=== PATIENT | male | born 1990 | race Caucasian/White ===

== ENCOUNTER 2020-12-06 06:07 | Emergency (ER) | payer SELFPAY ==
[2020-12-06 06:14] VITALS: BP 133/79; PULSE 100; RESP 18; TEMP 36.7; O2SAT 98
--- NOTE | 2020-12-06 06:16 | XRR_ITS ---
PROCEDURE INFORMATION: Exam: XR Left Wrist Exam date and time: 12/06/2020 6:16 AM Age: 30 years old Clinical indication: Injury or trauma; Other: Cut; Laceration; Wrist; Left; Additional info: Wrist injury? TECHNIQUE: Imaging protocol: XR Left wrist. Views: 1 or 2 views. COMPARISON: No relevant prior studies available. FINDINGS: Bones/joints: No acute fracture or dislocation. Soft tissues: No radiopaque or radiolucent foreign body. XR/XR wrist LT 2V [id number] IMPRESSION: 1. No acute fracture or dislocation. 2. No radiopaque or radiolucent foreign body.
[2020-12-06] MEDS: ceFAZolin 1,000 MG in sodium chloride 0.9% (plus) 50 ML 100 MG IV (07:06)
[2020-12-06] MEDS: tetanus-dipt-pertussis 0.5 mL SDV IM (07:07)
[2020-12-06] MEDS: morphine 4 mg/mL SDV 1 mL IVP (07:08)
--- NOTE | 2020-12-06 07:11 | W.ED.GENADLT ---
HPI - General Adult General: Chief complaint: Wound/Laceration Stated complaint: Injury to Left Wrist Time Seen by Provider: 12/06/20 06:17 History of Present Illness: HPI narrative: HPI: [30]yo patient w/ hx prior L hand tendon laceration presenting to the ED w/ new laceration to L volar hand. +L first/second/third digit numbness and decreased thumb opposition. Endorses mild bleeding that stopped. No LOC, injury elsewhere, focal weakness, or significant mechanism of injury. Not UTD with tdap. Not on blood thinner Onset: 12 hrs ago Duration: x 1 episode Location: home Severity: mild Review of Systems Narrative: Constitutional: No fever, no chills. HEENT: No vision changes CV: No chest pain, no palpitations PULM: No productive cough, no dyspnea. GI: No abdominal pain, no N/V/D. : No Dysuria MSKEL: No muscle pain SKIN: +Laceration over L hand NEURO: No headache, no focal weakness. HEME: No visible bruises PSYCH: Normal mood Physical Exam Narrative: EXAM NARRATIVE: Head: Atraumatic Eyes: PERRL, conjunctiva without injection, eyes tracking ENT: Mucous membrane moist NECK: Supple without lymphadenopathy LUNGS: LCTAB CV: RRR ABDOMEN: Soft, nontender in all quadrants, no guarding or rebound tenderness EXTREMITY: Normal ROM, +L base of thumb linear deep laceration 3cm +Radial and Ulnar pulses intact. R Thumb to index finger apposition decreased due to pain intact. R thumb extension/flexion intact Finger abduction to resistance intact. Sensation distally intact to light touch. Cap refill < 2 seconds all digits. +2 pt discrimination intact all digits, +numbness along the median nerve distribution over the R hand SKIN: Linear NEURO: Awake and alert. No focal weakness PSYCH: Cooperative mood and affect Procedures Laceration Laceration 1: Site: hand Side (If applicable): left Size (cm): 3 Description: linear Depth: simple, single layer and involves muscle layer Local Anesthetic: lidocaine 1% Amount of anesthesia used (mL): 5 Pre-repair: wound explored and irrigated extensively Skin layer closed with: vicryl Size (cm): 3-0 Number of sutures: 2 Technique: simple, interrupted Course Vital Signs: Vital signs: Vital Signs Temperature 98.1 F 12/06/20 09:22 Pulse Rate 100 12/06/20 06:14 Respiratory Rate 18 12/06/20 09:22 Blood Pressure 133/79 12/06/20 06:14 Pulse Oximetry 98 12/06/20 09:22 MDM - General Adult MDM Narrative: Medical decision making narrative: [30]yo patient sent the emergency room with a laceration of her left hand the base of the left thumb. On exam, patient has numbness over the median nerve distribution. Patient has decreased thumb opposition due to pain. Thumb flexion and extension intact. Rest of neurovascular exam intact. I suspect the patient may have some injury to the recurrent branch of the median nerve. No suspicion to injuries over the underlying tendon. Case discussed with Dr. Kj Sorto from [facility] at [facility] who agrees to me that this is likely a nerve injury as opposed to underlying tendon injury. Dr. Cherry agreed that patient may need to loose stitches and patient will need to be followed up in clinic on Tuesday for deeper exploration to see if the median nerve can be repaired. In the meantime, patient will be discharged home with Bactrim and Augmentin. Intervention: Two stitch were placed with 3-0 nylon. Please see laceration repair note. Interventions: cefazolin IV, TDAP Rx bactrim and clindamycin for infection prophylaxis Disposition: Discharge. Patient counseled regarding diagnostic impression, treatment plan. Patient given ED strict return precautions to return for continuation, worsening, or development of new symptoms. Instructed to f/u w/ [facility] in [facility] regarding symptoms today. Patient verbalized understanding. Imaging Data^: Other Imaging: Radiologist's impression: [address] [id number] ReportSigned Patient: Kings Rice #: [id number]: [id number]#:[id number]/Sex: 30 / MADM Date: 12/06/20Loc: ERRoom/Bed:Attending Dr: Ordering Provider/Ordering MD: Yosvany Aguayo MD Date of Service: 12/06/20 Procedure(s): XR wrist LT 2V [id number] Accession Number(s): [id number] Report Number: [id number] PROCEDURE INFORMATION: Exam: XR Left Wrist Exam date and time: 12/06/2020 6:16 AM Age: 30 years old Clinical indication: Injury or trauma; Other: Cut; Laceration; Wrist; Left; Additional info: Wrist injury? TECHNIQUE: Imaging protocol: XR Left wrist. Views: 1 or 2 views. COMPARISON: No relevant prior studies available. FINDINGS: Bones/joints: No acute fracture or dislocation. Soft tissues: No radiopaque or radiolucent foreign body. XR/XR wrist LT 2V [id number] IMPRESSION: 1. No acute fracture or dislocation. 2. No radiopaque or radiolucent foreign body. Dictated By:Ludwin Villarreal By:Ludwin Villarreal Date/Time:12/06/20830DD/ 8 Discharge Plan Discharge Patient Disposition: Home Clinical Impression: Hand laceration, Nerve injury Condition: Stable Prescriptions: New clindamycin HCl 300 mg capsule 300 mg PO Q12H 7 Days Qty: 14 RF: 0 Bactrim 400-80 mg tablet 1 tab PO BID 7 Days Qty: 14 RF: 0 Discharge Orders: Discharge ED (Routine); Ordered 12/06/20 Ordered By: Yosvany Aguayo Discharge Diet: Advance as tolerated Discharge Activity: Resume usual activity Patient Instructions: Laceration (ED) Activity Restrictions/Additional Instructions: Please follow-up with Dr. Sorto from [facility] on Tuesday. Please call [phone] for the [facility] [address] [place] [address] Take your antibiotics as instructed. Come back to the emergency room have any fever or chills, worseing pain, swelling, other injuries, or any new or concerning complaints Coding Level of Care Code ED Flat Sorting Machine Clerk for Carlos Santiago
[2020-12-06] MEDS: lidocaine 1% INJ 20 mL INJECTION (07:49)
[2020-12-06 09:22] VITALS: RESP 18; TEMP 36.7; O2SAT 98
== END 2020-12-06 09:27 | disposition home or self-care (01) ==
PROVIDERS: Emergency Provider Emergency Medicine
DX: S61.012A Laceration without foreign body of left thumb without damage to nail, initial encounter (principal); S64.12XA Injury of median nerve at wrist and hand level of left arm, initial encounter; X58.XXXA Exposure to other specified factors, initial encounter; Z23 Encounter for immunization
CPT/HCPCS: 12002; 73100; 90715; 96365; 96372; 96375; 99284; J0690; J2270

== ENCOUNTER 2022-09-03 14:02 | Emergency (ER) | payer SELFPAY ==
[2022-09-03 14:05] VITALS: BP 150/92; PULSE 83; RESP 16; TEMP 36.9; O2SAT 100; BMI 31.3
--- NOTE | 2022-09-03 14:39 | ED_ITS ---
HPI - Abdominal Pain General: Chief Complaint: Abdominal Pain Stated Complaint: lower abd pain Time Seen by Provider: 09/03/22 14:04 Source: patient Mode of arrival: ambulatory (In the custody of law enforcement) History of Present Illness: 32-year-old male presents emergency room in custody of law form complaining of lower abdominal pain. Patient states he passed a large amount of blood in the stool with a bowel movement this afternoon. He has had problems with hemorrhoids in the past no recent surgeries. No previous hemorrhoidectomy. He is not on any anticoagulants. Denies fever sweats chills nausea vomiting or diarrhea. MD elicited complaint: abdominal pain Onset (ago): hour(s) Quality: cramping Radiation: none Exacerbating factors: nothing Relieving factors: nothing Associated Symptoms: Reports hematochezia; Denies anorexia, belching, bloating, change in bowel habits, change in stool character, chills, coffee ground emesis, constipation, GI cramping, diarrhea, dyspepsia, dysuria, excessive flatus, fever(s), heartburn, hematuria, hematemesis, fecal incontinence, loose stools, melena, nausea, poor appetite, syncope and vomiting Review of Systems Const: Denies: fever(s) or chills Card: Denies: chest pain, palpitations or syncope Resp: Denies: dyspnea, productive cough or non-productive cough GI: Reports: hematochezia; Denies: abdominal pain, nausea, vomiting, hematemesis, coffee ground emesis, heartburn, diarrhea, constipation, bloating, GI cramping, belching, excessive flatus, fecal incontinence, change in bowel habits, change in stool character or melena : Denies: dysuria or hematuria Skin/Breast: Denies: rash or pruritus Physical Exam Const: GENERAL APPEARANCE: cooperative and comfortable ORIENTATION/CONSCIOUSNESS: Yes awake, Yes oriented to person, Yes oriented to place and Yes oriented to time HENMT: COMMON NORMALS: normocephalic, atraumatic and hearing grossly normal bilaterally HEAD & SCALP: normocephalic and atraumatic Resp: COMMON NORMALS: normal respiratory effort, No retractions, No use of accessory muscles and clear to auscultation bilaterally AUSCULTATION: clear to auscultation bilaterally Cardio: COMMON NORMALS: regular rate, regular rhythm and No murmurs present (Cardio) RATE: regular rate RHYTHM: regular rhythm GI: COMMON NORMALS: Soft to palpation and No hepatosplenomegaly present AUSCULTATION: Yes normoactive bowel sounds PALPATION: Yes Soft to palpation, No Tenderness to palpation present (GI), No Guarding due to palpation present (GI) and Yes No hepatosplenomegaly present Extremity: COMMON NORMALS: normal to inspection, capillary refill normal, no clubbing, cyanosis or edema, no calf tenderness and no pedal edema Neuro: SENSORIUM/ORIENTATION: Yes oriented to person, Yes oriented to place and Yes oriented to time Skin: COMMON NORMALS: no rashes or lesions noted GENERAL SKIN EXAM: no rashes or lesions noted Course Vital Signs: Vital signs: Vital Signs Temperature 98.4 F 09/03/22 14:05 Pulse Rate 76 09/03/22 14:44 Respiratory Rate 18 09/03/22 14:44 Blood Pressure 138/88 09/03/22 14:44 Pulse Oximetry 99 09/03/22 14:44 Oxygen Delivery Me thod Room Air 09/03/22 14:05 MDM - Abdominal Pain Medical Decision Making Bright red blood per rectum no active bleeding at this time suspect hemorrhoids. Abdominal exam unremarkable hemoglobin stable at 14. Discharge home we will set up for outpatient consult with surgery for colonoscopy return if has worsening or changes symptoms Medical Records I reviewed the patient's medical records. Lab Data I reviewed the patient's lab results. 09/03/22 14:37 09/03/22 14:37 Labs/Radiology: Laboratory Results WBC 6.8 10^3/uL (4.0-10.0) 09/03/22 14:37 RBC 4.58 10^6/uL (4.1-5.3) 09/03/22 14:37 Hgb 14.0 g/dL (11.7-16.6) 09/03/22 14:37 Hct 41.8 % (42.0-52.0) L 09/03/22 14:37 MCV 91.3 fl (80-94) 09/03/22 14:37 MCH 30.6 pg (28.0-34.0) 09/03/22 14:37 MCHC 33.5 g/dL (30.0-36.0) 09/03/22 14:37 RDW 12.5 % (12.1-15.1) 09/03/22 14:37 Plt Count 332 10^3/cmm (130-400) 09/03/22 14:37 MPV 10.2 fL (7.4-10.4) 09/03/22 14:37 Neut % (Auto) 58.0 % 09/03/22 14:37 Lymph % (Auto) 34.3 % 09/03/22 14:37 [place] % (Auto) 5.3 % 09/03/22 14:37 Eos % (Auto) 1.6 % 09/03/22 14:37 Baso % (Auto) 0.7 % 09/03/22 14:37 Neut # (Auto) 3.94 10^3/uL (1.8-7.7) 09/03/22 14:37 Lymph # (Auto) 2.3 10^3/uL (0.8-4.8) 09/03/22 14:37 [place] # (Auto) 0.4 10^3/uL (0.2-0.9) 09/03/22 14:37 Eos # (Auto) 0.1 10^3/uL (0.0-0.8) 09/03/22 14:37 Baso # (Auto) 0.1 10^3/uL (0.0-0.1) 09/03/22 14:37 Nucleated RBC % (auto) 0 % 09/03/22 14:37 Nucleated RBCs # 0.0 /100WBC 09/03/22 14:37 Sodium 140 mmol/L (136-145) 09/03/22 14:37 Potassium 4.1 mmol/L (3.5-5.1) 09/03/22 14:37 Chloride 103 mmol/L (98-107) 09/03/22 14:37 Carbon Dioxide 27 mmol/L (22-29) 09/03/22 14:37 Anion Gap 14.1 (5-19) 09/03/22 14:37 BUN 18 mg/dL (6-20) 09/03/22 14:37 Creatinine 1.0 mg/dL (0.7-1.2) 09/03/22 14:37 GFR Calculation 86.6 mL/min (90-130) L 09/03/22 14:37 Glucose 109 mg/dL (65-115) 09/03/22 14:37 Calculated Osmolality 292 mOsm/kg (285-295) 09/03/22 14:37 Calcium 9.2 mg/dL (8.5-10.5) 09/03/22 14:37 Total Bilirubin 0.2 mg/dL (0.15-1.2) 09/03/22 14:37 AST 21 U/L (0-40) 09/03/22 14:37 ALT 36 U/L (0-41) 09/03/22 14:37 Alkaline Phosphatase 79 U/L (40-130) 09/03/22 14:37 Total Protein 6.9 g/dL (6.6-8.7) 09/03/22 14:37 Albumin 4.3 g/dL (3.5-5.2) 09/03/22 14:37 Globulin 2.6 g/dL (1.3-4.6) 09/03/22 14:37 Urine Color Yellow (Yellow) 09/03/22 15:05 Urine Appearance Clear (CLEAR) 09/03/22 15:05 Urine pH 6 (5-7) 09/03/22 15:05 Ur Specific [place] 1.020 (1.005-1.030) 09/03/22 15:05 Urine Protein Neg (Negative) 09/03/22 15:05 Urine Glucose (UA) Norm (Normal) 09/03/22 15:05 Urine Ketones Negative (Negative) 09/03/22 15:05 Urine Blood Neg (Negative) 09/03/22 15:05 Urine Nitrate Negative (Negative) 09/03/22 15:05 Urine Bilirubin Neg (Negative) 09/03/22 15:05 Urine Urobilinogen Norm mg/dL (Negative) 09/03/22 15:05 Ur Leukocyte Esterase Negative (Negative) 09/03/22 15:05 Discharge Plan Discharge Patient Disposition: Home Clinical Impression: Bright red rectal bleeding Condition: Stable Prescriptions: New Anusol-HC 25 mg suppository 25 mg MT TID 28 Days Qty: 100 0RF Discharge Orders: Discharge ED (Routine); Ordered 09/03/22 Ordered By: Carlos Lopes Discharge Diet: Usual diet Discharge Activity: Resume usual activity Patient Instructions: Opioid Safety, Pain Management Coding Level of Care Code ED Reset Merchandiser for Chg Pamela
[2022-09-03 14:44] VITALS: BP 138/88; PULSE 76; RESP 18; O2SAT 100; O2SAT 99
[2022-09-03] MEDS: morphine 4 mg/mL SDV 1 mL IVP (14:44)
[2022-09-03] MEDS: ondansetron 2 mg/ML SDV 2 mL 4 MG IVP (14:45)
[2022-09-03] MEDS: sodium chloride 0.9% 1,000 ML 999 ML IV (14:45)
[2022-09-03 14:48] LABS: Basophils # 0.1 10^3/uL (0.0-0.1); Basophils % 0.7 %; Eosinophils # 0.1 10^3/uL (0.0-0.8); Eosinophils % 1.6 %; Hematocrit 41.8 % (42.0-52.0); Lymphocytes # 2.3 10^3/uL (0.8-4.8); Lymphocytes % 34.3 %; Mean Corpuscular HGB Conc 33.5 g/dL (30.0-36.0); Mean Corpuscular Hemoglobin 30.6 pg (28.0-34.0); Mean Corpuscular Volume 91.3 fl (80-94); Mean Platelet Volume 10.2 fL (7.4-10.4); Monocytes # 0.4 10^3/uL (0.2-0.9); Monocytes % 5.3 %; Neutrophils # 3.94 10^3/uL (1.8-7.7); Nucleated Red Blood Cells % 0 %; Platelet Count 332 10^3/cmm (130-400); Red Blood Count 4.58 10^6/uL (4.1-5.3); Red Cell Distribution Width 12.5 % (12.1-15.1); White Blood Count 6.8 10^3/uL (4.0-10.0)
[2022-09-03 15:08] LABS: Alanine Aminotransferase 36 U/L (0-41); Albumin Level 4.3 g/dL (3.5-5.2); Alkaline Phosphatase 79 U/L (40-130); Anion Gap 14.1 (5-19); Aspartate Amino Transferase 21 U/L (0-40); Blood Urea Nitrogen 18 mg/dL (6-20); Calcium 9.2 mg/dL (8.5-10.5); Carbon Dioxide 27 mmol/L (22-29); Chloride 103 mmol/L (98-107); Globulin 2.6 g/dL (1.3-4.6); Glomerular Filtration Rate 86.6 mL/min (90-130); Glucose 109 mg/dL (65-115); Osmolality Calculated 292 mOsm/kg (285-295); Potassium 4.1 mmol/L (3.5-5.1); Sodium 140 mmol/L (136-145); Total Bilirubin 0.2 mg/dL (0.15-1.2); Total Protein 6.9 g/dL (6.6-8.7)
[2022-09-03 15:39] LABS: Add Urine Microscopic? NO; Charge for UA Resulting for Rev
[2022-09-03 15:47] LABS: Bilirubin Urine Neg (Negative); Blood Urine Neg (Negative); Glucose Urine UA Norm (Normal); Ketones Urine Negative (Negative); Leukocyte Esterase Urine Negative (Negative); Nitrate Urine Negative (Negative); Protein Urine Neg (Negative); Urine Appearance Clear (CLEAR); Urine Color Yellow (Yellow); Urobilinogen Urine Norm (Negative); pH Urine 6 (5-7)
--- NOTE | 2022-09-06 09:51 | PC.SOCIAL ---
Addendum entered by Isabel Lama 09/15/22 13:07: manager cafe received the following message from general surgery regarding follow up appointment: [facility] full > mailing letter 09/13 On 09/10/22 @ 11:26 Cindy Warren Wrote To General Surgery Front Off voicemail box full 09/10 On 09/09/22 @ 14:10 Krunal Linda Wrote To General Surgery Front Off vmb full 09/09 Original Note: General Surgery Referral to General surgery at this time. Clinic to contact patient with appt date/time.
== END 2022-09-03 16:17 | disposition home or self-care (01) ==
PROVIDERS: Emergency Provider Family Medicine
DX: K62.5 Hemorrhage of anus and rectum (principal)
CPT/HCPCS: 36415; 80053; 81003; 85025; 96374; 96375; 99284; J2270; J2405; J7030

== ENCOUNTER 2022-09-08 21:40 | Emergency (ER) | payer SELFPAY ==
[2022-09-08 21:44] VITALS: BP 140/84; PULSE 66; RESP 16; TEMP 36.9; O2SAT 98; BMI 28.1
--- NOTE | 2022-09-08 22:24 | W.ED.GIBLEED ---
Documented by User: Pina Langley MD 09/09/22 23:57 HPI - GI Bleed General: Chief complaint: GI Bleed Stated complaint: ABD PAIN Time Seen by Provider: 09/08/22 21:44 History of Present Illness: This patient is a 32 year old presenting with abdominal pain and BRBPR. He reports that tonight he went to have a BM and he felt a pop in his abdomen below his belly button. Then he passed large amounts of blood and blood clots. He was seen here a few days ago for passing blood - and was diagnosed with hemorrhoids - given suppositories. He has had blood in his BM since then but has not had any abdominal pain until tonight. He denies any prior surgeries. He denies any medical history - but notes that he doesn't go to the doctor. He is in police custody and is currently in assisted. He reports that he got sweaty and dizzy with the BM tonight. He has had nausea for the past few days. He has been eating - but feels like he is starving. Physical Exam Const: COMMON NORMALS: no acute distress, patient oriented x3, no limitations and alert GENERAL APPEARANCE: cooperative and other (uncomfortable) HENMT: HEAD & SCALP: normal to inspection FACE & SINUS: normal facial exam Eye: GENERAL EYE: appearance normal, both eyes and all related structures Neck/C-Spine: COMMON NORMALS: supple, no meningeal signs and no JVD Chest: COMMONS NORMALS: normal inspection of the chest Resp: COMMON NORMALS: normal respiratory effort, No use of accessory muscles and clear to auscultation bilaterally AUSCULTATION: clear to auscultation bilaterally Cardio: COMMON NORMALS: no JVD, regular rate, regular rhythm and No murmurs present (Cardio) RATE: regular rate RHYTHM: regular rhythm GI: COMMON NORMALS: Normal to inspection, nondistended, normoactive bowel sounds present and Soft to palpation INSPECTION: Yes normal to inspection AUSCULTATION: Yes normoactive bowel sounds PALPATION: Yes Soft to palpation, Yes Tenderness to palpation present (GI) Details: RLQ and Yes Guarding due to palpation present (GI) in the LLQ and in the RLQ Back/Pelvis: COMMON NORMALS: thoracic and lumbar spine normal to inspection Extremity: COMMON NORMALS: normal to inspection Neuro: COMMON NORMALS: patient oriented x3, moves all extremities, no focal motor deficits and no sensory deficits noted SENSORIUM/ORIENTATION: Yes alert MENINGEAL SIGNS: Yes no meningeal signs Psych: COMMON NORMALS: mental status grossly normal, cooperative and normal affect Skin: COMMON NORMALS: no rashes or lesions noted and turgor normal GENERAL SKIN EXAM: no rashes or lesions noted and turgor normal Course Vital Signs: Vital signs: Vital Signs Temperature 98.4 F 09/08/22 21:44 Pulse Rate 68 09/09/22 02:04 Respiratory Rate 15 09/09/22 02:04 Blood Pressure 128/79 09/09/22 02:04 Pulse Oximetry 96 09/09/22 02:04 Oxygen Delivery Me thod Room Air 09/09/22 01:30 [facility] - GI Bleed Medical Decision Making Patient with rectal bleeding for several days - he reports onset of abdominal pain tonight with large bloody bowel movement. He is quite tender on exam in the lower quadrants. What he describes is more bleeding that would be expected for hemorrhoids. Labs, CT pending. Pain medications if needed. Care turned over to Dr. Luis while awaiting labs and CT results. Lab Data 09/08/22 23:44 09/08/22 23:44 Radiology Impressions Abdomen/Pelvis CT 09/08/22 23:02 IMPRESSION: 1. Solitary gallstone within the gallbladder. 2. No acute findings. Laboratory Results WBC 8.4 10^3/uL (4.0-10.0) 09/08/22 23:44 RBC 4.75 10^6/uL (4.1-5.3) 09/08/22 23:44 Hgb 14.2 g/dL (11.7-16.6) 09/08/22 23:44 Hct 42.9 % (42.0-52.0) 09/08/22 23:44 MCV 90.3 fl (80-94) 09/08/22 23:44 MCH 29.9 pg (28.0-34.0) 09/08/22 23:44 MCHC 33.1 g/dL (30.0-36.0) 09/08/22 23:44 RDW 12.6 % (12.1-15.1) 09/08/22 23:44 Plt Count 329 10^3/cmm (130-400) 09/08/22 23:44 MPV 10.4 fL (7.4-10.4) 09/08/22 23:44 Neut % (Auto) 70.1 % 09/08/22 23:44 Lymph % (Auto) 24.6 % 09/08/22 23:44 [place] % (Auto) 3.9 % 09/08/22 23:44 Eos % (Auto) 0.7 % 09/08/22 23:44 Baso % (Auto) 0.5 % 09/08/22 23:44 Neut # (Auto) 5.88 10^3/uL (1.8-7.7) 09/08/22 23:44 Lymph # (Auto) 2.1 10^3/uL (0.8-4.8) 09/08/22 23:44 [place] # (Auto) 0.3 10^3/uL (0.2-0.9) 09/08/22 23:44 Eos # (Auto) 0.1 10^3/uL (0.0-0.8) 09/08/22 23:44 Baso # (Auto) 0.0 10^3/uL (0.0-0.1) 09/08/22 23:44 Nucleated RBC % (auto) 0 % 09/08/22 23:44 Nucleated RBCs # 0.0 /100WBC 09/08/22 23:44 Sodium 139 mmol/L (136-145) 09/08/22 23:44 Potassium 4.2 mmol/L (3.5-5.1) 09/08/22 23:44 Chloride 102 mmol/L (98-107) 09/08/22 23:44 Carbon Dioxide 28 mmol/L (22-29) 09/08/22 23:44 Anion Gap 13.2 (5-19) 09/08/22 23:44 BUN 16 mg/dL (6-20) 09/08/22 23:44 Creatinine 1.0 mg/dL (0.7-1.2) 09/08/22 23:44 GFR Calculation 86.6 mL/min (90-130) L 09/08/22 23:44 Glucose 100 mg/dL (65-115) 09/08/22 23:44 Calculated Osmolality 289 mOsm/kg (285-295) 09/08/22 23:44 Lactic Acid 1.4 mmol/L (0.5-2.2) 09/08/22 23:44 Calcium 9.3 mg/dL (8.5-10.5) 09/08/22 23:44 Total Bilirubin 0.2 mg/dL (0.15-1.2) 09/08/22 23:44 AST 21 U/L (0-40) 09/08/22 23:44 ALT 41 U/L (0-41) 09/08/22 23:44 Alkaline Phosphatase 75 U/L (40-130) 09/08/22 23:44 Total Protein 7.3 g/dL (6.6-8.7) 09/08/22 23:44 Albumin 4.5 g/dL (3.5-5.2) 09/08/22 23:44 Globulin 2.8 g/dL (1.3-4.6) 09/08/22 23:44 Lipase 157 U/L (13-60) H 09/08/22 23:44 Urine Color Yellow (Yellow) 09/09/22 00:40 Urine Appearance Clear (CLEAR) 09/09/22 00:40 Urine pH 8 (5-7) H 09/09/22 00:40 Ur Specific [place] 1.015 (1.005-1.030) 09/09/22 00:40 Urine Protein Neg (Negative) 09/09/22 00:40 Urine Glucose (UA) Norm (Normal) 09/09/22 00:40 Urine Ketones Negative (Negative) 09/09/22 00:40 Urine Blood Neg (Negative) 09/09/22 00:40 Urine Nitrate Negative (Negative) 09/09/22 00:40 Urine Bilirubin Neg (Negative) 09/09/22 00:40 Prot Sulfosalicylic Acd Negative (Negative) 09/09/22 00:40 Urine Urobilinogen Neg mg/dL (Negative) 09/09/22 00:40 Ur Leukocyte Esterase Negative (Negative) 09/09/22 00:40 Blood Type B Positive 09/08/22 23:44 Rho(D) Type Positive 09/08/22 23:44 Antibody Screen Negative 09/08/22 23:44 Discharge Plan Discharge Patient Disposition: Home Clinical Impression: Bright red rectal bleeding Condition: Stable Prescriptions: New Protonix 40 mg tablet,delayed release (DR/EC) 40 mg PO Q12H 14 Days Qty: 28 0RF ciprofloxacin HCl 500 mg tablet 500 mg PO BID Qty: 10 0RF No Action Anusol-HC 25 mg suppository 25 mg [place] TID 28 Days Qty: 100 0RF Discharge Orders: Discharge ED (Routine); Ordered 09/09/22 Ordered By: Mitul Luis Discharge Diet: Advance as tolerated and Clear Liquid Discharge Activity: Increase activity as tolerated Patient Instructions: Rectal Bleeding (ED), Abdominal Pain (ED) Activity Restrictions/Additional Instructions: Thank you for visiting the emergency department. You were seen evaluated for abdominal pain and blood in stool. The exact cause your symptoms is unclear. Given persistent symptoms we will treat with antibiotics. I will also prescribe Protonix though I think higher source of bleeding is unlikely. I will message case management for follow-up. Return for lightheadedness, dizziness, worsening or uncontrolled abdominal pain, chest pain, shortness of breath, or anything else that you are concerned about and feel needs emergency department evaluation. Sign Out Sign Out Data: Patient Sign Out occurred on 09/08/22 at 23:58. Patient's care was discussed, and care was transferred from to Mitul Luis MD. Coding Level of Care Code ED Construction Manager for Chg Fwd Documented by User: Mitul Luis MD 09/21/22 08:21 HPI - GI Bleed General: Chief complaint: GI Bleed Stated complaint: ABD PAIN Time Seen by Provider: 09/08/22 21:44 Course Vital Signs: Vital signs: Vital Signs Temperature 98.4 F 09/08/22 21:44 Pulse Rate 68 09/09/22 02:04 Respiratory Rate 15 09/09/22 02:04 Blood Pressure 128/79 09/09/22 02:04 Pulse Oximetry 96 09/09/22 02:04 Oxygen Delivery Me thod Room Air 09/09/22 01:30 MDM - GI Bleed Medical Decision Making Patient with rectal bleeding for several days - he reports onset of abdominal pain tonight with large bloody bowel movement. He is quite tender on exam in the lower quadrants. What he describes is more bleeding that would be expected for hemorrhoids. Labs, CT pending. Pain medications if needed. Care turned over to Dr. Luis while awaiting labs and CT results. Patient care handoff received from Dr. Langley pending completion of ED evaluation. Laboratory studies and imaging reviewed. No active acute surgical problem identified. Our general surgeon on-call does not perform colonoscopy at our facility and patient does not qualify for transfer. I will try course of antibiotics. The results of ED evaluation were discussed with the patient including prescriptions and/or symptomatic cares (if applicable) including appropriate and responsible use, followup plan, and return precautions. The patient verbalized understanding and felt safe for discharge. Mitul Luis MD Emergency Medicine Lab Data 09/08/22 23:44 09/08/22 23:44 Radiology Impressions Abdomen/Pelvis CT 09/08/22 23:02 IMPRESSION: 1. Solitary gallstone within the gallbladder. 2. No acute findings. Laboratory Results WBC 8.4 10^3/uL (4.0-10.0) 09/08/22 23:44 RBC 4.75 10^6/uL (4.1-5.3) 09/08/22 23:44 Hgb 14.2 g/dL (11.7-16.6) 09/08/22 23:44 Hct 42.9 % (42.0-52.0) 09/08/22 23:44 MCV 90.3 fl (80-94) 09/08/22 23:44 MCH 29.9 pg (28.0-34.0) 09/08/22 23:44 MCHC 33.1 g/dL (30.0-36.0) 09/08/22 23:44 RDW 12.6 % (12.1-15.1) 09/08/22 23:44 Plt Count 329 10^3/cmm (130-400) 09/08/22 23:44 MPV 10.4 fL (7.4-10.4) 09/08/22 23:44 Neut % (Auto) 70.1 % 09/08/22 23:44 Lymph % (Auto) 24.6 % 09/08/22 23:44 [place] % (Auto) 3.9 % 09/08/22 23:44 Eos % (Auto) 0.7 % 09/08/22 23:44 Baso % (Auto) 0.5 % 09/08/22 23:44 Neut # (Auto) 5.88 10^3/uL (1.8-7.7) 09/08/22 23:44 Lymph # (Auto) 2.1 10^3/uL (0.8-4.8) 09/08/22 23:44 [place] # (Auto) 0.3 10^3/uL (0.2-0.9) 09/08/22 23:44 Eos # (Auto) 0.1 10^3/uL (0.0-0.8) 09/08/22 23:44 Baso # (Auto) 0.0 10^3/uL (0.0-0.1) 09/08/22 23:44 Nucleated RBC % (auto) 0 % 09/08/22 23:44 Nucleated RBCs # 0.0 /100WBC 09/08/22 23:44 Sodium 139 mmol/L (136-145) 09/08/22 23:44 Potassium 4.2 mmol/L (3.5-5.1) 09/08/22 23:44 Chloride 102 mmol/L (98-107) 09/08/22 23:44 Carbon Dioxide 28 mmol/L (22-29) 09/08/22 23:44 Anion Gap 13.2 (5-19) 09/08/22 23:44 BUN 16 mg/dL (6-20) 09/08/22:44 Creatinine 1.0 mg/dL (0.7-1.2) 09/08/22 23:44 GFR Calculation 86.6 mL/min (90-130) L 09/08/22 23:44 Glucose 100 mg/dL (65-115) 09/08/22 23:44 Calculated Osmolality 289 mOsm/kg (285-295) 09/08/22:44 Lactic Acid 1.4 mmol/L (0.5-2.2) 09/08/22 23:44 Calcium 9.3 mg/dL (8.5-10.5) 09/08/22 23:44 Total Bilirubin 0.2 mg/dL (0.15-1.2) 09/08/22 23:44 AST 21 U/L (0-40) 09/08/22 23:44 ALT 41 U/L (0-41) 09/08/22 23:44 Alkaline Phosphatase 75 U/L (40-130) 09/08/22 23:44 Total Protein 7.3 g/dL (6.6-8.7) 09/08/22 23:44 Albumin 4.5 g/dL (3.5-5.2) 09/08/22 23:44 Globulin 2.8 g/dL (1.3-4.6) 09/08/22 23:44 Lipase 157 U/L (13-60) H 09/08/22 23:44 Urine Color Yellow (Yellow) 09/09/22 00:40 Urine Appearance Clear (CLEAR) 09/09/22 00:40 Urine pH 8 (5-7) H 09/09/22 00:40 Ur Specific [place] 1.015 (1.005-1.030) 09/09/22 00:40 Urine Protein Neg (Negative) 09/09/22 00:40 Urine Glucose (UA) Norm (Normal) 09/09/22 00:40 Urine Ketones Negative (Negative) 09/09/22 00:40 Urine Blood Neg (Negative) 09/09/22 00:40 Urine Nitrate Negative (Negative) 09/09/22 00:40 Urine Bilirubin Neg (Negative) 09/09/22 00:40 Prot Sulfosalicylic Acd Negative (Negative) 09/09/22 00:40 Urine Urobilinogen Neg mg/dL (Negative) 09/09/22 00:40 Ur Leukocyte Esterase Negative (Negative) 09/09/22 00:40 Blood Type B Positive 09/08/22 23:44 Rho(D) Type Positive 09/08/22 23:44 Antibody Screen Negative 09/08/22 23:44 Discharge Plan Discharge Patient Disposition: Home Clinical Impression: Bright red rectal bleeding Condition: Stable Prescriptions: New Protonix 40 mg tablet,delayed release (DR/EC) 40 mg PO Q12H 14 Days Qty: 28 0RF ciprofloxacin HCl 500 mg tablet 500 mg PO BID Qty: 10 0RF No Action Anusol-HC 25 mg suppository 25 mg [place] TID 28 Days Qty: 100 0RF Discharge Orders: Discharge ED (Routine); Ordered 09/09/22 Ordered By: Mitul Luis Discharge Diet: Advance as tolerated and Clear Liquid Discharge Activity: Increase activity as tolerated Patient Instructions: Rectal Bleeding (ED), Abdominal Pain (ED) Activity Restrictions/Additional Instructions: Thank you for visiting the emergency department. You were seen evaluated for abdominal pain and blood in stool. The exact cause your symptoms is unclear. Given persistent symptoms we will treat with antibiotics. I will also prescribe Protonix though I think higher source of bleeding is unlikely. I will message case management for follow-up. Return for lightheadedness, dizziness, worsening or uncontrolled abdominal pain, chest pain, shortness of breath, or anything else that you are concerned about and feel needs emergency department evaluation. Sign Out Sign Out Data: Patient Sign Out occurred on 09/08/22 at 23:58. Patient's care was discussed, and care was transferred from to Mitul Luis MD. Coding Level of Care Code ED Construction Manager for Carlos Santiago
[2022-09-08 22:30] VITALS: BP 122/79; PULSE 66; O2SAT 99
--- NOTE | 2022-09-08 23:02 | CTR_ITS ---
PROCEDURE INFORMATION: Exam: CT Abdomen And Pelvis With Contrast Exam date and time: 09/08/2022 11:13 PM Age: 32 years old Clinical indication: Abdominal pain; Generalized TECHNIQUE: Imaging protocol: Computed tomography of the abdomen and pelvis with contrast. Radiation optimization: All CT scans at this facility use at least one of these dose optimization techniques: automated exposure control; mA and/or kV adjustment per patient size (includes targeted exams where dose is matched to clinical indication); or iterative reconstruction. Contrast material: OMNI 350; Contrast volume: 100 ml; Contrast route: INTRAVENOUS (IV); REPORTING DATA: Count of CT and Cardiac NM exams in prior 12 months: This patient has received 0 known CTs and 0 known cardiac nuclear medicine studies in the 12 months prior to the current study. COMPARISON: CR XR chest 2V* [id number] 03/28/2016 1:28 PM RADIATION DOSE METRICS: Total DLP (mGy-cm): 583.54 FINDINGS: Liver: Normal. No mass. Gallbladder and bile ducts: Solitary gallstone within the gallbladder. Pancreas: Normal. No ductal dilation. Spleen: One or more accessory splenules. Adrenal glands: Normal. No mass. Kidneys and ureters: Normal. No hydronephrosis. Stomach and bowel: Unremarkable. No obstruction. No mucosal thickening. Appendix: Normal appendix. Intraperitoneal space: Unremarkable. No free air. No significant fluid collection. Vasculature: Unremarkable. No abdominal aortic aneurysm. Lymph nodes: Unremarkable. No enlarged lymph nodes. Urinary bladder: Unremarkable as visualized. Reproductive: Unremarkable as visualized. Bones/joints: Unremarkable. No acute fracture. Soft tissues: Unremarkable. CT/CT abdomen pelvis w con* [id number] IMPRESSION: 1. Solitary gallstone within the gallbladder. 2. No acute findings.
[2022-09-08] MEDS: iohexol 350 mg/mL 500 mL Btl (per mL) IV (23:18)
[2022-09-08 23:30] VITALS: BP 133/89; PULSE 78; O2SAT 99
[2022-09-09 00:03] LABS: Basophils % 0.5 %; Eosinophils # 0.1 10^3/uL (0.0-0.8); Eosinophils % 0.7 %; Hematocrit 42.9 % (42.0-52.0); Hemoglobin 14.2 g/dL (11.7-16.6); Lymphocytes # 2.1 10^3/uL (0.8-4.8); Lymphocytes % 24.6 %; Mean Corpuscular HGB Conc 33.1 g/dL (30.0-36.0); Mean Corpuscular Hemoglobin 29.9 pg (28.0-34.0); Mean Corpuscular Volume 90.3 fl (80-94); Mean Platelet Volume 10.4 fL (7.4-10.4); Monocytes # 0.3 10^3/uL (0.2-0.9); Monocytes % 3.9 %; Neutrophils # 5.88 10^3/uL (1.8-7.7); Neutrophils % 70.1 %; Nucleated Red Blood Cells % 0 %; Platelet Count 329 10^3/cmm (130-400); Red Blood Count 4.75 10^6/uL (4.1-5.3); Red Cell Distribution Width 12.6 % (12.1-15.1); White Blood Count 8.4 10^3/uL (4.0-10.0)
[2022-09-09 00:20] LABS: Alanine Aminotransferase 41 U/L (0-41); Albumin Level 4.5 g/dL (3.5-5.2); Alkaline Phosphatase 75 U/L (40-130); Anion Gap 13.2 (5-19); Aspartate Amino Transferase 21 U/L (0-40); Blood Urea Nitrogen 16 mg/dL (6-20); Calcium 9.3 mg/dL (8.5-10.5); Carbon Dioxide 28 mmol/L (22-29); Chloride 102 mmol/L (98-107); Globulin 2.8 g/dL (1.3-4.6); Glomerular Filtration Rate 86.6 mL/min (90-130); Glucose 100 mg/dL (65-115); Lipase 157 U/L (13-60); Osmolality Calculated 289 mOsm/kg (285-295); Potassium 4.2 mmol/L (3.5-5.1); Sodium 139 mmol/L (136-145); Total Bilirubin 0.2 mg/dL (0.15-1.2); Total Protein 7.3 g/dL (6.6-8.7)
[2022-09-09 00:21] LABS: Lactic Sepsis W/Reflex 1.4 mmol/L (0.5-2.2)
[2022-09-09 00:43] VITALS: BP 127/74; PULSE 61; O2SAT 96
[2022-09-09 00:46] LABS: Add Urine Microscopic? NO; Charge for UA Resulting for Rev
[2022-09-09 00:59] LABS: Specific Gravity, Urine 1.015 (1.005-1.030); Urine Appearance Clear (CLEAR); Urine Color Yellow (Yellow); pH Urine 8 (5-7)
[2022-09-09 01:00] VITALS: BP 119/78; PULSE 63; RESP 16; O2SAT 97
[2022-09-09 01:00] LABS: Bilirubin Urine Neg (Negative); Blood Urine Neg (Negative); Glucose Urine UA Norm (Normal); Ketones Urine Negative (Negative); Leukocyte Esterase Urine Negative (Negative); Nitrate Urine Negative (Negative); Protein Urine Neg (Negative); Sulfosalicylic Acid Urine Negative (Negative); Urobilinogen Urine Neg (Negative)
[2022-09-09 01:02] VITALS: BP 123/83; BP 126/94; BP 128/84; PULSE 68; PULSE 84; PULSE 97
--- NOTE | 2022-09-09 01:22 | PC.NURSE ---
Pt report received from Sarina MANE. Pt resting in bed with PD at bedside. Pt denies needs at this time.
[2022-09-09 01:30] VITALS: BP 130/98; PULSE 93; RESP 21; O2SAT 98
[2022-09-09] MEDS: ciprofloxacin 500 mg Tablet PO (02:00)
[2022-09-09 02:04] VITALS: BP 128/79; PULSE 68; RESP 15; O2SAT 96
--- NOTE | 2022-09-09 07:26 | DCPLANNER ---
Addendum entered by Isabel Lama 09/28/22 14:49: truck sales manager received the following message from the general surgery clinic regarding follow up appointment: Unable to make contact with patient Original Note: truck sales manager had message to schedule a follow up appointment for patient with general surgery. truck sales manager sent patients information to the front office staff at general surgery. Patients information will be printed and reviewed. Clinic will call patient with appointment information.
--- NOTE | 2022-09-09 13:57 | DCPLANNER ---
manager of tax called patient due to no primary care physician - no answer at this time.
== END 2022-09-09 02:08 | disposition home or self-care (01) ==
PROVIDERS: Emergency Medicine; Emergency Provider Emergency Medicine
DX: K62.5 Hemorrhage of anus and rectum (principal)
CPT/HCPCS: 36415; 74177; 80053; 81003; 83605; 83690; 85025; 86850; 86900; 99284; Q9967

== ENCOUNTER 2022-09-16 13:47 | Emergency (ER) | payer SELFPAY ==
[2022-09-16 13:49] VITALS: BP 130/79; RESP 15; TEMP 37.2
[2022-09-16 14:17] LABS: Basophils % 0.4 %; Eosinophils # 0.2 10^3/uL (0.0-0.8); Eosinophils % 2.2 %; Hematocrit 40.1 % (42.0-52.0); Hemoglobin 13.3 g/dL (11.7-16.6); Lymphocytes # 2.3 10^3/uL (0.8-4.8); Lymphocytes % 33.6 %; Mean Corpuscular HGB Conc 33.2 g/dL (30.0-36.0); Mean Corpuscular Hemoglobin 30.3 pg (28.0-34.0); Mean Corpuscular Volume 91.3 fl (80-94); Mean Platelet Volume 10.5 fL (7.4-10.4); Monocytes # 0.4 10^3/uL (0.2-0.9); Monocytes % 5.9 %; Neutrophils # 4.03 10^3/uL (1.8-7.7); Neutrophils % 57.8 %; Nucleated Red Blood Cells % 0 %; Platelet Count 347 10^3/cmm (130-400); Red Blood Count 4.39 10^6/uL (4.1-5.3)
--- NOTE | 2022-09-16 14:56 | ED_ITS ---
HPI - GI Bleed General: Chief complaint: GI Bleed Stated complaint: rectal bleeding Time Seen by Provider: 09/16/22 13:58 History of Present Illness: 32-year-old male brought to emergency room from local custodial due to rectal bleeding in the past few days. Patient reveals multiple episode of rectal bleeding with some clots within the past 24 hours. Has any rectal pain, no anal sex no abdominal pain, nausea or vomiting. Vomiting blood or coughing up blood. She was seen and evaluated twice within the past few months for similar complaint. Associated symptoms: Denies abdominal pain, nausea or vomiting Review of Systems General: Reports: 10 or more systems reviewed and unremarkable except in HPI and below GI: Reports: hematochezia; Denies: abdominal pain, nausea, vomiting, hematemesis, coffee ground emesis, dysphagia, early satiety, diarrhea, constipation, excessive flatus, fecal incontinence, pain on defecation, rectal swelling, rectal itching, change in stool character or mucus in stool Physical Exam Const: COMMON NORMALS: no acute distress, average body habitus, patient oriented x3, no limitations, healthy appearing, alert and well nourished HENMT: COMMON NORMALS: normocephalic, atraumatic, hearing grossly normal bilaterally, external ears normal, EAC's normal, TM's normal bilaterally, Normal external nose present, Normal nasal mucous membranes and turbinates present, moist oral mucous membranes, oropharynx normal, dentition normal and gingiva normal HEAD & SCALP: normocephalic and atraumatic NOSE: Normal external nose present and Normal nasal mucous membranes and turbinates present EXTERNAL EAR: Yes external ears normal EXTERNAL AUDITORY CANAL: EAC's normal TYMPANIC MEMBRANE: TM's normal bilaterally Neck/C-Spine: COMMON NORMALS: no JVD Resp: COMMON NORMALS: normal respiratory effort, No retractions, No use of accessory muscles, clear to auscultation bilaterally and percussion normal AUSCULTATION: clear to auscultation bilaterally PERCUSSION: percussion normal Cardio: COMMON NORMALS: no JVD, regular rate, regular rhythm, S1 normal heart sound present, S2 normal heart sound present, No gallops present (Cardio), No clicks present (Cardio), No murmurs present (Cardio), No rub (Cardio) and Peripheral pulses 2+ throughout RATE: regular rate RHYTHM: regular rhythm HEART SOUNDS: S1 normal heart sound present and S2 normal heart sound present PERIPHERAL PULSES: Peripheral pulses 2+ throughout GI: INSPECTION: Yes normal to inspection and No Laceration(s) present (GI) RECTAL EXAM: Yes visual inspection normal, Yes normal sphincter tone, Yes prostate normal, Yes heme negative stool, No Rectal prolapse, No Lesions present (GI), No Fistula present (GI), No Laceration(s) present (GI), No Excoriation present (GI), No fecal impaction, No Anal fissure(s) present, No mass, No tenderness and Yes Anal wink reflex intact Neuro: COMMON NORMALS: patient oriented x3 SENSORIUM/ORIENTATION: Yes alert Course Vital Signs: Vital signs: Vital Signs Temperature 98.9 F 09/16/22 13:49 Respiratory Rate 15 09/16/22 13:49 Blood Pressure 130/79 09/16/22 13:49 Oxygen Delivery Me thod Room Air 09/16/22 13:49 MDM - GI Bleed Medical Decision Making Patient made comfortable emergency room. Patient states they have a complete physical semination. Blood work was done patient's hemoglobin is stable. Discussed the finding with the patient. Ruth the need to follow-up with GI for further evaluation such as colonoscopy in next few weeks. He was given referral to see GI in the next few weeks as well. Differential Diagnosis Likely hemorrhoids, infectious diarrhea, esophageal varices, gastritis, Nila- Louis syndrome, Upper gastrointestinal hemorrhage, Lower gastrointestinal hemorrhage, hematochezia, melena and anal fissure Lab Data 09/16/22 14:05 Laboratory Results WBC 7.0 10^3/uL (4.0-10.0) 09/16/22 14:05 RBC 4.39 10^6/uL (4.1-5.3) 09/16/22 14:05 Hgb 13.3 g/dL (11.7-16.6) 09/16/22 14:05 Hct 40.1 % (42.0-52.0) L 09/16/22 14:05 MCV 91.3 fl (80-94) 09/16/22 14:05 MCH 30.3 pg (28.0-34.0) 09/16/22 14:05 MCHC 33.2 g/dL (30.0-36.0) 09/16/22 14:05 RDW 13.0 % (12.1-15.1) 09/16/22 14:05 Plt Count 347 10^3/cmm (130-400) 09/16/22 14:05 MPV 10.5 fL (7.4-10.4) H 09/16/22 14:05 Neut % (Auto) 57.8 % 09/16/22 14:05 Lymph % (Auto) 33.6 % 09/16/22 14:05 [place] % (Auto) 5.9 % 09/16/22 14:05 Eos % (Auto) 2.2 % 09/16/22 14:05 Baso % (Auto) 0.4 % 09/16/22 14:05 Neut # (Auto) 4.03 10^3/uL (1.8-7.7) 09/16/22 14:05 Lymph # (Auto) 2.3 10^3/uL (0.8-4.8) 09/16/22 14:05 [place] # (Auto) 0.4 10^3/uL (0.2-0.9) 09/16/22 14:05 Eos # (Auto) 0.2 10^3/uL (0.0-0.8) 09/16/22 14:05 Baso # (Auto) 0.0 10^3/uL (0.0-0.1) 09/16/22 14:05 Nucleated RBC % (auto) 0 % 09/16/22 14:05 Nucleated RBCs # 0.0 /100WBC 09/16/22 14:05 Discharge Plan Discharge Patient Disposition: Home Clinical Impression: Lower gastrointestinal hemorrhage, Hemorrhoids Condition: Stable Prescriptions: No Action Anusol-HC 25 mg suppository 25 mg MT TID 28 Days Qty: 100 0RF Protonix 40 mg tablet,delayed release (DR/EC) 40 mg PO Q12H 14 Days Qty: 28 0RF ciprofloxacin HCl 500 mg tablet 500 mg PO BID Qty: 10 0RF Discharge Orders: Discharge ED (Routine); Ordered 09/16/22 Ordered By: Adamaris Maldonado Referrals: Festus Andrade DO [Physician] - 2 weeks Discharge Diet: Advance as tolerated Discharge Activity: Resume usual activity Patient Instructions: Opioid Safety, Pain Management Coding Level of Care Code ED Lithographer Apprentice for Chg Fwbibiana
--- NOTE | 2022-09-16 15:05 | PC.NURSE ---
WHEN PT WAS BEING DISCHARGE PT STATED IF I GO BACK TO PRISON I'M GOING TO OFF MYSELF. I CANT GO BACK INTO THAT CELL. IF I DO THERE IS PLENTY OF THINGS TO OFF MYSELF WITH. END QUOTE DR. HENLEY AND CHARGE NURSE WERE NOTIFIED. I NOTIFIED CLAUDY THAT PT WAS SI AND WOULD NEED TO BE PLACED ON SI PRECAUTIONS.
[2022-09-16 15:11] VITALS: BP 128/91; PULSE 94; RESP 16; O2SAT 96
== END 2022-09-16 15:21 | disposition home or self-care (01) ==
PROVIDERS: Emergency Provider Family Medicine
DX: K92.2 Gastrointestinal hemorrhage, unspecified (principal); K64.9 Unspecified hemorrhoids
CPT/HCPCS: 85025; 99283

== ENCOUNTER 2023-12-31 14:46 | Emergency (ER) | payer SELFPAY ==
--- NOTE | 2023-12-31 14:46 | ECG_ITS ---
[facility] Test Date: 2023-12-31 Pat Name: Kings Rice Department: Room: Gender: Male Script Writer: : 1990 Requested By: Carlos Aguilar Order Number: [id number] Benny MD: Clement Sinclair M.D. Measurements Intervals [place] Rate: 75 P: 51 TN: 138 QRS: 44 QRSD: 99 T: 56 QT: 334 QTc: 374 Interpretive Statements SINUS RHYTHM POSSIBLE RIGHT VENTRICULAR CONDUCTION DELAY [RSR (QR) IN V1/V2] No previous ECG available for comparison Electronically Signed On 01-02-2024 00:08:38 CDT by Clement Sinclair M.D. [email or web address]
[2023-12-31 14:55] VITALS: BP 117/71; PULSE 74; RESP 17; TEMP 36.7; O2SAT 98; BMI 31.3
--- NOTE | 2023-12-31 15:41 | XRR_ITS ---
PROCEDURE INFORMATION: Exam: XR Chest Exam date and time: 12/31/2023 4:00 PM Age: 33 years old Clinical indication: Chest pressure; Patient HX: Persistent lt nterior chest pain; No cardiac HX TECHNIQUE: Imaging protocol: Radiologic exam of the chest. Views: 1 view. COMPARISON: CT abdomen pelvis w con* [id number] 09/08/2022 11:13 PM FINDINGS: Lungs: Unremarkable. No consolidation. Pleural spaces: Unremarkable. No pleural effusion. No pneumothorax. Heart/Mediastinum: Unremarkable. No cardiomegaly. Bones/joints: Unremarkable. XR/XR chest 1V portable [id number] IMPRESSION: No acute findings.
[2023-12-31 15:58] LABS: Basophils % 0.5 %; Eosinophils # 0.1 10^3/uL (0.0-0.8); Eosinophils % 1.4 %; Hematocrit 44.5 % (37-53); Lymphocytes # 2.3 10^3/uL (0.8-4.8); Lymphocytes % 26.7 %; Mean Corpuscular HGB Conc 33.5 g/dL (30-55); Mean Corpuscular Hemoglobin 30.2 pg (27-33); Mean Corpuscular Volume 90.3 fl (82-101); Mean Platelet Volume 9.9 fL (7.4-10.4); Monocytes # 0.5 10^3/uL (0.2-0.9); Neutrophils # 5.67 10^3/uL (1.8-7.7); Neutrophils % 65.1 %; Nucleated Red Blood Cells % 0 %; Platelet Count 346 10^3/cmm (157-399); Red Blood Count 4.93 10^6/uL (3.85-5.65); Red Cell Distribution Width 12.3 % (12.1-15.1)
--- NOTE | 2023-12-31 15:58 | ED_ITS ---
HPI - Chest Pain 2 General: Chief Complaint: Chest Pain Stated Complaint: chest pain Time Seen by Provider: 12/31/23 15:39 History of Present Illness: 33-year-old male presents emergency room complaining chest pain began this morning left side of his chest comes and goes it is worse with movement worse with deep inspiration. At times will radiate towards his back. No association with exertion. No vomiting no hematemesis or coffee-ground emesis no known history of arrhythmias or coronary artery disease Associated symptoms: Deny abdominal pain, dyspnea or fever(s) Related Data Previous Rx's Medication Instructions Recorded ciprofloxacin HCl 500 mg tablet 500 mg PO BID #10 tabs 09/09/22 diclofenac sodium 75 mg 75 mg PO Q12H PRN pain #20 tabs 12/31/23 tablet,delayed release Allergies Allergy/AdvReac Type Severity Reaction Status Date / Time No Known Allergies Allergy Verified 12/31/23 14:54 Review of Systems 2 Const: Denies: fever(s) or chills Card: Denies: chest pain Resp: Denies: dyspnea GI: Denies: abdominal pain : Denies: dysuria, urinary frequency or urinary urgency Musc: Denies: neck pain or back pain Skin/Breast: Denies: rash Physical Exam 2 Const: COMMON NORMALS: no acute distress GENERAL APPEARANCE: cooperative and comfortable ORIENTATION/CONSCIOUSNESS: Yes awake, Yes oriented to person, Yes oriented to place and Yes oriented to time HENMT: COMMON NORMALS: normocephalic, atraumatic and hearing grossly normal bilaterally HEAD & SCALP: normocephalic and atraumatic Resp: COMMON NORMALS: normal respiratory effort, No retractions, No use of accessory muscles and clear to auscultation bilaterally AUSCULTATION: clear to auscultation bilaterally Cardio: COMMON NORMALS: regular rate, regular rhythm and No murmurs present (Cardio) RATE: regular rate RHYTHM: regular rhythm GI: COMMON NORMALS: Soft to palpation and No hepatosplenomegaly present A USCULTATION: Yes normoactive bowel sounds PALPATION: Yes Soft to palpation, No Tenderness to palpation present (GI), No Guarding due to palpation present (GI) and Yes No hepatosplenomegaly present Extremity: COMMON NORMALS: normal to inspection, capillary refill normal, no clubbing, cyanosis or edema, no calf tenderness and no pedal edema Neuro: SENSORIUM/ORIENTATION: Yes oriented to person, Yes oriented to place and Yes oriented to time Skin: COMMON NORMALS: no rashes or lesions noted GENERAL SKIN EXAM: no rashes or lesions noted Course 2 Vital Signs: Vital signs: Vital Signs Temperature 98.1 F 12/31/23 14:55 Pulse Rate 78 12/31/23 18:42 Respiratory Rate 22 H 12/31/23 18:00 Blood Pressure 123/72 12/31/23 18:42 Pulse Oximetry 97 12/31/23 18:42 MDM - Chest Pain Medical Decision Making Labs and imaging reviewed. No acute findings no elevation of troponin EKG does not show anything acute chest x-ray unremarkable suspect the chest pain is musculoskeletal given history and clinical findings do not believe it is acute coronary syndrome. Will discharge patient home diclofenac to use as needed Medical Records I reviewed the patient's medical records. Lab Data I reviewed the patient's lab results. 12/31/23 15:53 12/31/23 15:53 Radiology Impressions Chest X-Ray 12/31/23 15:41 IMPRESSION: No acute findings. Laboratory Results WBC 8.70 10^3/uL (3.29-11.43) 12/31/23 15:53 RBC 4.93 10^6/uL (3.85-5.65) 12/31/23 15:53 Hgb 14.90 g/dL (11.27-16.99) 12/31/23 15:53 Hct 44.5 % (37-53) 12/31/23 15:53 MCV 90.3 fl (82-101) 12/31/23 15:53 MCH 30.2 pg (27-33) 12/31/23 15:53 MCHC 33.5 g/dL (30-55) 12/31/23 15:53 RDW 12.3 % (12.1-15.1) 12/31/23 15:53 Plt Count 346 10^3/cmm (157-399) 12/31/23 15:53 MPV 9.9 fL (7.4-10.4) 12/31/23 15:53 Neut % (Auto) 65.1 % 12/31/23 15:53 Lymph % (Auto) 26.7 % 12/31/23 15:53 [facility] % (Auto) 6.0 % 12/31/23 15:53 Eos % (Auto) 1.4 % 12/31/23 15:53 Baso % (Auto) 0.5 % 12/31/23 15:53 Neut # (Auto) 5.67 10^3/uL (1.8-7.7) 12/31/23 15:53 Lymph # (Auto) 2.3 10^3/uL (0.8-4.8) 12/31/23 15:53 [facility] # (Auto) 0.5 10^3/uL (0.2-0.9) 12/31/23 15:53 Eos # (Auto) 0.1 10^3/uL (0.0-0.8) 12/31/23 15:53 Baso # (Auto) 0.0 10^3/uL (0.0-0.1) 12/31/23 15:53 Nucleated RBC % (auto) 0 % 12/31/23 15:53 Nucleated RBCs # 0.0 /100WBC 12/31/23 15:53 Sodium 139 mmol/L (136-145) 12/31/23 15:53 Potassium 4.4 mmol/L (3.5-5.1) 12/31/23 15:53 Chloride 104 mmol/L (98-107) 12/31/23 15:53 Carbon Dioxide 27 mmol/L (22-29) 12/31/23 15:53 Anion Gap 12.4 (5-19) 12/31/23 15:53 BUN 16 mg/dL (6-20) 12/31/23 15:53 Creatinine 0.9 mg/dL (0.7-1.2) 12/31/23 15:53 GFR Calculation 97.2 mL/min (90-130) 12/31/23 15:53 Glucose 87 mg/dL (65-115) 12/31/23 15:53 Calculated Osmolality 289 mOsm/kg (285-295) 12/31/23 15:53 Calcium 8.8 mg/dL (8.5-10.5) 12/31/23 15:53 Total Bilirubin 0.2 mg/dL (0.15-1.2) 12/31/23 15:53 AST 20 U/L (0-40) 12/31/23 15:53 ALT 52 U/L (0-41) H 12/31/23 15:53 Alkaline Phosphatase 69 U/L (40-130) 12/31/23 15:53 Total Protein 6.9 g/dL (6.6-8.7) 12/31/23 15:53 Albumin 4.1 g/dL (3.5-5.2) 12/31/23 15:53 Globulin 2.8 g/dL (1.3-4.6) 12/31/23 15:53 All radiology interpretation(s) finalized by discharge Discharge Plan Discharge Patient Disposition: Home Clinical Impression: Chest pain, musculoskeletal Condition: Stable Prescriptions: New diclofenac sodium 75 mg tablet,delayed release (DR/EC) 75 mg PO Q12H PRN (Reason: pain) Qty: 20 0RF No Action ciprofloxacin HCl 500 mg tablet 500 mg PO BID Qty: 10 0RF Discharge Orders: Discharge ED (Routine); Ordered 12/31/23 Ordered By: Carlos Lopes Discharge Diet: Usual diet Discharge Activity: Increase activity as tolerated Patient Instructions: Opioid Safety, Pain Management Activity Restrictions/Additional Instructions: Thank you for choosing [facility] for your healthcare needs today. It is very important that you follow up as instructed or that you return to the Emergency Department should you have concerns or if your condition changes or worsens in any way. You were seen in the emergency room with complaints of chest pain. EKG was normal. Your laboratory test and chest x-ray were also normal. Based on the character of your symptoms chest pain is from musculoskeletal source. You can use diclofenac as needed for pain relief. He would asked about the lumps that you had at various areas of your body on exam they appear to be lipomas follow- up with your primary care doctor they can refer you to general surgery to have these excised if you wish. Coding Level of Care Code ED Engineer Assistant for Carlos Santiago
[2023-12-31 16:18] LABS: Alanine Aminotransferase 52 U/L (0-41); Albumin Level 4.1 g/dL (3.5-5.2); Alkaline Phosphatase 69 U/L (40-130); Aspartate Amino Transferase 20 U/L (0-40); Blood Urea Nitrogen 16 mg/dL (6-20); Calcium 8.8 mg/dL (8.5-10.5); Carbon Dioxide 27 mmol/L (22-29); Chloride 104 mmol/L (98-107); Creatinine Clr Calc Pharmacy 125.4066; Globulin 2.8 g/dL (1.3-4.6); Glomerular Filtration Rate 97.2 mL/min (90-130); Glucose 87 mg/dL (65-115); Osmolality Calculated 289 mOsm/kg (285-295); Sodium 139 mmol/L (136-145); Total Bilirubin 0.2 mg/dL (0.15-1.2); Total Protein 6.9 g/dL (6.6-8.7)
[2023-12-31 16:29] LABS: Anion Gap 12.4 (5-19); Potassium 4.4 mmol/L (3.5-5.1)
[2023-12-31 16:30] VITALS: BP 132/74; PULSE 75; RESP 23; O2SAT 95
[2023-12-31 17:00] VITALS: BP 135/77; PULSE 77; RESP 22; O2SAT 96
[2023-12-31] MEDS: ketorolac 30 mg/mL INJ IVP (17:08)
[2023-12-31 17:30] VITALS: BP 134/73; PULSE 72; RESP 22; O2SAT 95
[2023-12-31 18:00] VITALS: BP 123/72; PULSE 69; RESP 22; O2SAT 95
[2023-12-31 18:42] VITALS: BP 123/72; PULSE 78; O2SAT 97
== END 2023-12-31 18:42 | disposition home or self-care (01) ==
PROVIDERS: Emergency Provider Family Medicine
DX: R07.89 Other chest pain (principal)
CPT/HCPCS: 71045; 80053; 85025; 93005; 96374; 99285; J1885

== ENCOUNTER 2024-06-30 19:16 | Emergency (ER) | payer OTHER, SELFPAY ==
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
[2024-06-30 19:25] VITALS: BP 112/66; PULSE 67; RESP 17; TEMP 37; O2SAT 94; BMI 32.8
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
[2024-06-30 21:33] VITALS: BP 106/60; PULSE 57; O2SAT 95
== END 2024-06-30 21:34 | disposition home or self-care (01) ==
PROVIDERS: Emergency Provider Nurse Practitioner Family
DX: S60.222A Contusion of left hand, initial encounter (principal); W22.8XXA Striking against or struck by other objects, initial encounter
CPT/HCPCS: 73130; 99283